=== PATIENT | female | born 1955 | race Caucasian/White ===

== ENCOUNTER 2017-03-06 14:35 | Emergency (ER) | payer MEDICAID ==
--- NOTE | 2017-03-06 15:01 | ED Physician Documentation ---
History of Present Illness - Stated complaint Stated Complaint: DIZZY, SOA, NUMBNESS IN EXTREMITIES - Chief complaint Chief Complaint: Resp - History obtained from History obtained from: Patient - History of Present Illness Timing: Yesterday Pain level max: 2 Pain level now: 2 Improved by: nothing Worsened by: nothing - Additonal information Additional information: Patient is a 62-year-old female who presents to the emergency department complaining of tingling in the bilateral hands and feet since yesterday. States also had some back pain at one point, this is now better. Also had left shoulder pain at one point, this is not resolved. States that occasionally her tongue hurts and it is worse when she sticks her tongue out. She also complains of feeling short of breath with walking for the past 24 hours. Review of Systems Ten Systems: 10 systems reviewed and negative Constitutional: denies: Fever, Chills Ears: denies: Ear pain Nose: denies: Rhinorrhea / runny nose, Congestion Throat: denies: Sore throat Cardiac: denies: Chest pain / pressure, Palpitations Respiratory: reports: Dyspnea (with walking) GI: denies: Abdominal Pain, Nausea, Vomiting, Diarrhea Skin: denies: Rash Musculoskeletal: denies: Neck pain Neurologic: reports: Generalized weakness. 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 - Present Medications Home Medications: Ambulatory Orders Medication Instructions Recorded Confirmed Clonazepam 0.5 mg PO DAILY 03/06/17 03/06/17 - Allergies Allergies/Adverse Reactions: Allergies Allergy/AdvReac Type Severity Reaction Status Date / Time No Known Drug Allergies Allergy Verified 03/06/17 14:42 - Social History Does the pt smoke?: No Smoking Status: Never smoker Does the pt drink ETOH?: No Does the pt have substance abuse?: No - Immunizations Immunizations are current?: No PD ED PE NORMAL - Vitals Vital signs reviewed: Yes - General General: Alert and oriented X 3, No acute distress, Well developed/nourished - HEENT HEENT: PERRL, Moist mucous membranes, Pharynx benign - Neck Neck: Supple, no meningeal sign, No JVD, No bruit - Cardiac Cardiac: RRR, Strong equal pulses - Respiratory Respiratory: No respiratory distress, Clear bilaterally - Abdomen Abdomen: Soft, Non tender, Non distended - Back Back: No spinal TTP - Derm Derm: Warm and dry, No rash - Extremities Extremities: No edema, No calf tenderness / cord - Neuro Neuro: Alert and oriented X 3, heating and cooling technician 2-12 intact, No motor deficit, No sensory deficit, Normal speech - Psych Psych: Normal mood, Normal affect Results - Vitals Vitals: Vital Signs - 24 hr 03/06/17 14:38 Temperature 37 C Heart Rate 64 Respiratory 18 Rate Blood Pressure 133/75 H O2 Saturation 99 Oxygen O2 Source Room air - EKG (time done) 1446 Rate: Rate (enter#) (60) Rhythm: NSR [place]: Normal Intervals: Normal CT QRS: Normal Ischemia: Normal ST segments Computer interpretation: Agree with computer - Labs Labs: Laboratory Tests 03/06/17 03/06/17 03/06/17 15:06 15:06 15:06 WBC 7.5 RBC 4.85 Hgb 14.3 Hct 42.2 MCV 87.1 MCH 29.6 MCHC 34.0 RDW 13.8 Plt Count 241 MPV 8.5 Neut # 4.6 Lymph # 2.0 Gilmer # 0.6 Eos # 0.2 Baso # 0.1 Absolute Nucleated RBC 0.00 Nucleated RBCs 0.0 D-Dimer < 200.0 L Sodium 140 Potassium 3.9 Chloride 105 Carbon Dioxide 27 Anion Gap 8.0 BUN 14 Creatinine 0.7 Estimated GFR (MDRD) 85 L Glucose 87 Calcium 9.1 Total Bilirubin 0.5 AST 23 ALT 17 Alkaline Phosphatase 89 Troponin I Total Protein 6.9 Albumin 4.3 Globulin 2.6 Albumin/Globulin Ratio 1.7 Lipase 42 03/06/17 15:06 WBC RBC Hgb Hct MCV MCH MCHC RDW Plt Count MPV Neut # Lymph # Gilmer # Eos # Baso # Absolute Nucleated RBC Nucleated RBCs D-Dimer Sodium Potassium Chloride Carbon Dioxide Anion Gap BUN Creatinine Estimated GFR (MDRD) Glucose Calcium Total Bilirubin AST ALT Alkaline Phosphatase Troponin I < 0.04 Total Protein Albumin Globulin Albumin/Globulin Ratio Lipase - Rads (name of study) cxr Radiology: Prelim report reviewed, EMP read contemporaneously, See rad report ( no acute disease) PD MEDICAL DECISION MAKING - ED course Complexity details: reviewed results, re-evaluated patient, considered differential (No ST elevation ID, no aortic dissection, no PE, no tension pneumothorax, no aortic aneurysm), d/w patient ED course: Patient is a 62-year-old female who presents to the emergency department with paresthesias, intermittent back pain, intermittent chest pain. No acute findings on laboratory testing, EKG, chest x-ray. No evidence of PE. Possible anxiety related? No evidence of aortic dissection.We will continue supportive care and have her follow-up with her doctor for further evaluation and care. Patient counseled regarding signs and symptoms for which I believe and urgent re -evaluation would be necessary. Patient with good understanding of and agreement to plan and is comfortable going home at this time This document was made in part using voice recognition software. While efforts are made to proofread this document, sound alike and grammatical errors may occur. Departure - Departure Disposition: 01 Home, Self Care Clinical Impression: Paresthesia Dyspnea Qualifiers: Dyspnea type: dyspnea on exertion Qualified Code(s): R06.09 - Other forms of dyspnea Condition: Good Instructions: ED Dyspnea Shortness of Breath, ED Paraesthesias Follow-Up: your,doctor in 1 week [Other] Comments: Your tests are normal today. Return if you worsen. NIHSS - Time Time: 15:00 - Level of Consciousness Level of consciousness: (0) Alert, Keenly responsive LOC Questions: (0) Answers both Q's correct LOC Commands: (0) Performs both correctly - Gaze Best Gaze: (0) Normal - Visual Visual: (0) No loss - Facial Palsy Facial Palsy: (0) Normal, symmetrical movement - Motor Arms (both separate) Motor Arm (right): (0) No drift Motor Arm (left): (0) No drift - Motor Legs (both separate) Motor Leg (right): (0) No drift Motor Leg (left): (0) No drift - Limb Ataxia Limb Ataxia: (0) Absent - Sensory Sensory: (0) Normal - Best Language Best Language: (0) No aphasia - Dysarthria Dysarthria: (0) Normal - Extinction and Inattention (formally neg Extinction and inattention: (0) No abnormality - Total Score/Results Total Score/Result: 0
[2017-03-06 15:17] LABS: BASOPHILS # (AUTO) 0.1 10^3/uL (0.0-0.1); EOSINOPHILS # (AUTO) 0.2 10^3/uL (0.0-0.7); EOSINOPHILS % (AUTO) 2.5 %; HCT - HEMATOCRIT 42.2 % (37.0-47.0); HGB - HEMOGLOBIN 14.3 g/dL (12.0-16.0); LYMPHOCYTES % (AUTO) 26.5 %; MEAN CORPUSCULAR HEMOGLOBIN 29.6 pg (27.0-31.0); MEAN CORPUSCULAR VOLUME 87.1 fL (81.0-99.0); MEAN PLATELET VOLUME 8.5 fL (7.9-10.8); MONOCYTES # (AUTO) 0.6 10^3/uL (0.0-1.0); MONOCYTES % (AUTO) 8.4 %; NEUTROPHILS # (AUTO) 4.6 10^3/uL (1.5-6.6); NEUTROPHILS % (AUTO) 61.6 %; RED BLOOD COUNT 4.85 10^6/uL (4.20-5.40); RED CELL DISTRIBUTION WIDTH 13.8 % (12.0-15.0); UNCORRECTED WHITE BLOOD COUNT 7.5 x10^3/uL; WHITE BLOOD COUNT 7.5 x10^3/uL (4.8-10.8)
[2017-03-06 15:26] LABS: ALBUMIN/GLOBULIN RATIO 1.7 (1.0-2.2); BILIRUBIN,TOTAL 0.5 mg/dL (0.2-1.0); CALCIUM 9.1 mg/dL (8.5-10.3); CREATININE 0.7 mg/dL (0.4-1.0); POTASSIUM 3.9 mmol/L (3.5-5.0); TOTAL PROTEIN 6.9 g/dL (6.7-8.2)
--- NOTE | 2017-03-06 15:38 | XRAY Preliminary Report ---
Exam: XR Chest 1 View IMPRESSION: Normal single view chest. [facility] SITE ID: [id number]
--- NOTE | 2017-03-06 15:40 | XRAY Report ---
EXAM: CHEST RADIOGRAPHY EXAM DATE: 03/06/2017 03:22 PM. CLINICAL HISTORY: Dyspnea, chest pain. COMPARISON: None. TECHNIQUE: 1 view. FINDINGS: Lungs/Pleura: No focal opacities evident. No pleural effusion. No pneumothorax. Mediastinum: Within exam limitations, cardiomediastinal contour is normal. Other: None. IMPRESSION: Normal single view chest. [facility] Referring Provider Line: [phone] SITE ID: [id number]
[2017-03-06 18:34] VITALS: BP 111/66
== END 2017-03-06 17:15 | disposition home or self-care (01) ==
LOC: ED 14:35
DX: R20.2 Paresthesia of skin (principal); R06.09 Other forms of dyspnea; M54.9 Dorsalgia, unspecified; R07.9 Chest pain, unspecified; M25.512 Pain in left shoulder
CPT/HCPCS: 36415; 71010; 80053; 83690; 84484; 85025; 85379; 93005; 93010; 99284

== ENCOUNTER 2019-02-09 08:11 | Outpatient (CLI) | payer MEDICAID ==
[2019-02-09 10:22] LABS: BASOPHILS # (AUTO) 0.1 10^3/uL (0.0-0.1); BASOPHILS % (AUTO) 0.7 %; EOSINOPHILS # (AUTO) 0.1 10^3/uL (0.0-0.7); EOSINOPHILS % (AUTO) 1.6 %; HGB - HEMOGLOBIN 15.2 g/dL (12.0-16.0); LYMPHOCYTES # (AUTO) 1.3 10^3/uL (1.5-3.5); LYMPHOCYTES % (AUTO) 14.2 %; MEAN CORPUSCULAR HEMOGLOBIN 28.6 pg (27.0-31.0); MEAN CORPUSCULAR HGB CONC 32.2 g/dL (32.0-36.0); MEAN CORPUSCULAR VOLUME 88.8 fL (81.0-99.0); MEAN PLATELET VOLUME 8.8 fL (7.9-10.8); MONOCYTES # (AUTO) 0.6 10^3/uL (0.0-1.0); MONOCYTES % (AUTO) 6.3 %; NEUTROPHILS # (AUTO) 7.2 10^3/uL (1.5-6.6); NEUTROPHILS % (AUTO) 77.2 %; PLT - PLATELET COUNT 227 10^3/uL (130-450); WHITE BLOOD COUNT 9.3 x10^3/uL (4.8-10.8)
[2019-02-09 10:40] LABS: ALBUMIN 4.3 g/dL (3.2-5.5); ALBUMIN/GLOBULIN RATIO 1.7 (1.0-2.2); ALKALINE PHOSPHATASE 85 IU/L (42-121); ALT ALANINE AMINOTRANSFERASE 25 IU/L (10-60); AST ASPARTATE AMINOTRANSFERASE 30 IU/L (10-42); BILIRUBIN,TOTAL 0.7 mg/dL (0.2-1.0); BUN - BLOOD UREA NITROGEN 15 mg/dL (6-20); CALCIUM 9.2 mg/dL (8.5-10.3); CARBON DIOXIDE - CO2 26 mmol/L (21-32); CHLORIDE 104 mmol/L (101-111); CHOL/HDL RATIO 4.3 (<4.4); CHOLESTEROL 260 mg/dL; CREATININE 0.8 mg/dL (0.4-1.0); GFR - MDRD 73 (>89); GLUCOSE 114 mg/dL (70-100); HDL CHOLESTEROL 60 mg/dL; LDL CHOLESTEROL,CALCULATED 158 mg/dL; LDL/HDL RATIO 2.6 (<4.4); SODIUM 139 mmol/L (135-145); TOTAL PROTEIN 6.9 g/dL (6.7-8.2); VLDL CHOLESTEROL 42 mg/dL
== END 2019-02-09 08:12 | disposition home or self-care (01) ==
LOC: LAB.F 08:11
PROVIDERS: ATTEND Nurse Practitioner
DX: Z00.00 Encounter for general adult medical examination without abnormal findings (principal)
CPT/HCPCS: 36415; 80053; 80061; 83721; 84443; 85025

== ENCOUNTER 2019-05-13 12:53 | Emergency (ER) | payer MEDICAID ==
[2019-05-13 13:00] VITALS: BP 145/91
--- NOTE | 2019-05-13 13:13 | ED Physician Documentation ---
History of Present Illness - Stated complaint Stated Complaint: ANXIETY - Chief complaint Chief Complaint: Cardiac - History obtained from History obtained from: Patient - History of Present Illness Timing: Chronic Pain level max: 0 Pain level now: 0 - Additonal information Additional information: 64-year-old female with a long history of anxiety presents to the emergency department out of her clonazepam for the last several days. States attempted to get in with her PCP but no appointment is available until 05/17/2019. She is not suicidal or homicidal. She is anxious about taking her son to [facility] tomorrow. Nothing makes it better or worse. 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 - Present Medications Home Medications: Ambulatory Orders Medication Instructions Recorded Confirmed clonazePAM [Clonazepam] 0.5 mg PO DAILY 03/06/17 03/06/17 clonazePAM [KlonoPIN] 0.5 mg PO DAILY PRN #7 tablet 05/13/19 - Allergies Allergies/Adverse Reactions: Allergies Allergy/AdvReac Type Severity Reaction Status Date / Time No Known Drug Allergies Allergy Verified 03/06/17 14:42 - Social History Does the pt smoke?: No Smoking Status: Never smoker Does the pt drink ETOH?: No Does the pt have substance abuse?: No - Immunizations Immunizations are current?: No PD ED PE NORMAL - Vitals Vital signs reviewed: Yes - General General: Alert and oriented X 3, No acute distress, Well developed/nourished - HEENT HEENT: Moist mucous membranes - Neck Neck: Supple, no meningeal sign - Cardiac Cardiac: RRR, Strong equal pulses - Respiratory Respiratory: No respiratory distress, Clear bilaterally - Abdomen Abdomen: Soft, Non tender, Non distended - Derm Derm: Warm and dry, No rash - Extremities Extremities: No edema, No calf tenderness / cord - Neuro Neuro: Alert and oriented X 3, score caller 2-12 intact, No motor deficit, No sensory deficit, Normal speech - Psych Psych: Normal mood, Normal affect Results - Vitals Vitals: Vital Signs - 24 hr 05/13/19 12:56 Temperature 36.7 C Heart Rate 70 Respiratory 18 Rate Blood Pressure 145/91 H O2 Saturation 98 Oxygen O2 Source Room air PD MEDICAL DECISION MAKING - ED course Complexity details: considered differential, d/w patient ED course: patient with increasing anxiety. We will refill her clonazepam for her. She has an appointment with her doctor in approximately 4 days. She is not suicidal or homicidal. Patient counseled regarding signs and symptoms for which I believe and urgent re-evaluation would be necessary. Patient with good understanding of and agreement to plan and is comfortable going home at this time This document was made in part using voice recognition software. While efforts are made to proofread this document, sound alike and grammatical errors may occur. Departure - Departure Disposition: 01 Home, Self Care Clinical Impression: Anxiety Condition: Good Instructions: ED Panic Attack Follow-Up: your,doctor as scheduled [Other] Prescriptions: clonazePAM [KlonoPIN] 0.5 mg PO DAILY PRN #7 tablet PRN Reason: Anxiety Comments: Use the medications as prescribed. Return if you worsen. Follow-up with your doctor for further care. Do not drive or operate heavy machinery while taking this medication.
== END 2019-05-13 13:20 | disposition home or self-care (01) ==
LOC: ED 12:53
DX: F41.9 Anxiety disorder, unspecified (principal)
CPT/HCPCS: 99283; 99284

== ENCOUNTER 2020-06-26 14:47 | Outpatient (CLI) | payer MEDICAID | END 2020-06-26 14:48 | disposition home or self-care (01) | LOC: COV 14:47 | PROVIDERS: ATTEND Family Medicine | DX: R50.9 Fever, unspecified (principal); R05 Cough; M79.10 Myalgia, unspecified site; R53.83 Other fatigue; R09.81 Nasal congestion; R11.2 Nausea with vomiting, unspecified; Z20.828 Contact with and (suspected) exposure to other viral communicable diseases ==

== ENCOUNTER 2020-11-15 11:59 | Emergency (ER) | payer MEDICAID ==
[2020-11-15 12:31] VITALS: BP 132/71
[2020-11-15 12:32] LABS: BASOPHILS # (AUTO) 0.1 10^3/uL (0.0-0.1); BASOPHILS % (AUTO) 0.9 %; EOSINOPHILS # (AUTO) 0.3 10^3/uL (0.0-0.7); EOSINOPHILS % (AUTO) 3.3 %; HGB - HEMOGLOBIN 15.3 g/dL (12.0-16.0); LYMPHOCYTES # (AUTO) 1.8 10^3/uL (1.5-3.5); LYMPHOCYTES % (AUTO) 19.8 %; MEAN CORPUSCULAR HEMOGLOBIN 29.4 pg (27.0-31.0); MEAN CORPUSCULAR HGB CONC 32.6 g/dL (32.0-36.0); MEAN CORPUSCULAR VOLUME 90.2 fL (81.0-99.0); MEAN PLATELET VOLUME 9.6 fL (7.9-10.8); MONOCYTES # (AUTO) 0.7 10^3/uL (0.0-1.0); MONOCYTES % (AUTO) 8.2 %; NEUTROPHILS # (AUTO) 5.9 10^3/uL (1.5-6.6); NEUTROPHILS % (AUTO) 67.2 %; PLT - PLATELET COUNT 263 10^3/uL (130-450); RED CELL DISTRIBUTION WIDTH 13.9 % (12.0-15.0); WHITE BLOOD COUNT 8.8 x10^3/uL (4.8-10.8)
--- NOTE | 2020-11-15 12:33 | ED Physician Documentation ---
History of Present Illness - Stated complaint Stated Complaint: SOA,CHEST PRESSURE,CONFUSION - Chief complaint Chief Complaint: Cardiac - History obtained from History obtained from: Patient - Additonal information Additional information: 65-year-old female presents to the emergency department for evaluation of chest pressure dizziness and what she reports as confusion. She states that last night she was trying to bake an egg dish and felt overwhelmed with the recipe though she had done it many times before. She ended up in tears and called her mom. She states that if she is going to bed last night she had a constant pressure in her chest. It woke her up number of times throughout the night and the chest pressure is constant this morning. She feels like she cannot fully catch her air. She does report to me that she has not taken her clonazepam for about 5 days. Her primary care provider and her are attempting to wean off the clonazepam which she has been on for many years. Due to prescription error the newest dose was not able to be filled at the pharmacy and her primary provider is correcting this. Patient reports a lot of anxiety regarding the incarceration of her son who was shot about 9 months ago by [employer]. This causes her a lot of worry as she feels from him. She denies any history of hypertension or diabetes. No previous coronary artery disease. She is a daily smoker. She has no recent travel or unilateral leg swelling. No abdominal pain nausea vomiting diaphoresis. Patient reports that she feels confused however she is quite alert, oriented x4 able to answer all questions fully, and also has remote and long-term history intact. Review of Systems Constitutional: reports: Reviewed and negative Eyes: reports: Reviewed and negative Ears: reports: Reviewed and negative Nose: reports: Reviewed and negative Throat: reports: Reviewed and negative Cardiac: reports: Chest pain / pressure. denies: Palpitations, Pedal edema, Calf pain Respiratory: reports: Dyspnea. denies: Cough, Hemoptysis, Wheezing GI: denies: Abdominal Pain, Nausea, Vomiting, Constipation, Diarrhea : denies: Dysuria, Frequency, Hesitancy Skin: denies: Rash, Lesions, Abrasion (s) Musculoskeletal: denies: Neck pain, Back pain, Extremity pain, Joint pain Neurologic: denies: Generalized weakness, Focal weakness, Numbness, Difficulty speaking, Near syncope, Syncope, Seizure, Confused, Altered mental status, Headache, LOC Psychiatric: reports: Depressed, Anxiety Endocrine: reports: Reviewed and negative PD PAST MEDICAL HISTORY - Past Medical History Past Medical History: No Psych: Anxiety - Past Surgical History 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 - Allergies Allergies/Adverse Reactions: Allergies Allergy/AdvReac Type Severity Reaction Status Date / Time No Known Drug Allergies Allergy Verified 11/15/20 12:04 - Social History Does the pt smoke?: Yes Smoking Status: Current every day smoker Does the pt drink ETOH?: No Does the pt have substance abuse?: No - Immunizations Immunizations are current?: Yes - POLST Patient has POLST: No PD ED PE EXPANDED - General General: Alert, No acute distress, Well developed/nourished - HEENT HEENT: Atraumatic, PERRL, EOMI, Pharynx normal - Eyes Eyes: Visual acuity - see nn, PERRL - Neck Neck: Supple w/out meningeal sx, No tenderness. No: Adenopathy - Cardiac Cardiac: Regular Rate, Regular Rhythm, Radial strong equal, Cap refill < 2 sec. No: Murmur Present - Respiratory Respiratory: Clear to ausultation nieves. No: Distress, Labored - Abdomen Abdomen: Normal Bowel sounds. No: Tender to palpation - Derm Derm: Normal color. No: Rash - Extremities Extremities: Normal. No: Deformity, Tenderness, Pedal edema bilateral, Right calf TTP/cord, Left calf TTP/cord - Neuro Neuro: Alert and Oriented X 3, CNII-XII intact, Nystagmus, Cerebellar nl, Normal gait, Normal finger nose, Normal speech, Other (No tremor on exam.) - GCS Eye Opening: Spontaneous Motor: Obeys Commands Verbal: Oriented Total: 15 Results - Vitals Vitals: Vital Signs - 24 hr 11/15/20 11/15/20 12:06 12:30 Temperature 36.8 C Heart Rate 74 74 Respiratory 18 18 Rate Blood Pressure 146/79 H 132/71 H O2 Saturation 98 96 Oxygen O2 Source Room air - Labs Labs: Laboratory Tests 11/15/20 11/15/20 11/15/20 12:25 12:25 12:25 WBC 8.8 RBC 5.20 Hgb 15.3 Hct 46.9 MCV 90.2 MCH 29.4 MCHC 32.6 RDW 13.9 Plt Count 263 MPV 9.6 Neut # (Auto) 5.9 Lymph # (Auto) 1.8 Winston # (Auto) 0.7 Eos # (Auto) 0.3 Baso # (Auto) 0.1 Absolute Nucleated RBC 0.00 Nucleated RBC % 0.0 D-Dimer Sodium 140 Potassium 4.0 Chloride 104 Carbon Dioxide 25 Anion Gap 11.0 BUN 21 H Creatinine 0.8 Estimated GFR (MDRD) 72 L Glucose 113 H Calcium 9.3 Total Bilirubin 0.5 AST 22 ALT 19 Alkaline Phosphatase 95 Troponin I High Sens 2.7 Total Protein 7.1 Albumin 4.3 Globulin 2.8 Albumin/Globulin Ratio 1.5 Lipase 57 H 11/15/20 12:29 WBC RBC Hgb Hct MCV MCH MCHC RDW Plt Count MPV Neut # (Auto) Lymph # (Auto) Winston # (Auto) Eos # (Auto) Baso # (Auto) Absolute Nucleated RBC Nucleated RBC % D-Dimer < 200.0 L Sodium Potassium Chloride Carbon Dioxide Anion Gap BUN Creatinine Estimated GFR (MDRD) Glucose Calcium Total Bilirubin AST ALT Alkaline Phosphatase Troponin I High Sens Total Protein Albumin Globulin Albumin/Globulin Ratio Lipase PD MEDICAL DECISION MAKING - ED course Complexity details: reviewed results, considered differential ED course: 65-year-old female presents the emergency department for evaluation of chest pressure, anxiety and reported confusion. This is in the setting of recently being absent lorazepam for 5 days. She reports to me that her primary care provider is writing for a new prescription. Her EKG is nonischemic. High- sensitivity troponin is negative. D-dimer is negative and her Wells criteria is otherwise low for PE. Chest x-ray showed no acute focal abnormality. During the time patient was here in the emergency department we discussed that some of her symptoms may be related to absence of benzodiazepine. While we were pursuing the work-up of her chest pain and pressure patient eloped from the emergency department without discussion with the RN or provider and left through the ambulance bay doors. I fully reviewed her labs and found no significant or concerning abnormalities. She had stated to the patient in the room with her that "I just cannot take this anymore" before leaving Impression: Chest pressure history of benzodiazepine use Departure - Departure Disposition: ED Elope Clinical Impression: Pressure in chest, Benzodiazepine dependence, Anxiety
[2020-11-15 12:44] LABS: ALBUMIN 4.3 g/dL (3.2-5.5); ALBUMIN/GLOBULIN RATIO 1.5 (1.0-2.2); BILIRUBIN,TOTAL 0.5 mg/dL (0.2-1.0); CALCIUM 9.3 mg/dL (8.5-10.3); CREATININE 0.8 mg/dL (0.4-1.0); TOTAL PROTEIN 7.1 g/dL (6.7-8.2)
--- NOTE | 2020-11-15 12:47 | XRAY Report ---
PROCEDURE: Chest 1 View X-Ray INDICATIONS: Chest Pain TECHNIQUE: One view of the chest was acquired. COMPARISON: Single view chest 03/06/2017 FINDINGS: Surgical changes and devices: None. Lungs and pleura: No pleural effusions or pneumothorax. Lungs are clear. Mediastinum: Mediastinal contours appear normal. Heart size is normal. Bones and chest wall: No suspicious bony lesions. Overlying soft tissues appear unremarkable. IMPRESSION: Normal for age, source of current symptoms is not seen. Reviewed by: Nikolai Woodard MD on 11/15/2020 12:45 PM PST Approved by: Nikolai Woodard MD on 11/15/2020 12:45 PM PST Station ID: [id number]
== END 2020-11-15 13:05 | disposition left against medical advice (07) ==
LOC: ED 11:59
DX: R07.89 Other chest pain (principal); F13.20 Sedative, hypnotic or anxiolytic dependence, uncomplicated; F17.200 Nicotine dependence, unspecified, uncomplicated; F41.9 Anxiety disorder, unspecified
CPT/HCPCS: 36415; 80053; 83690; 84443; 84484; 85025; 85379; 93005; 99284

== ENCOUNTER 2022-08-30 14:08 | Outpatient (CLI) | payer MEDICARE, MEDICAID ==
--- NOTE | 2022-08-30 15:03 | XRAY Report ---
PROCEDURE: Lumbar Spine 2 View INDICATIONS: LUMBAR RADICULOPATHY TECHNIQUE: 2 views of the lumbar spine were acquired. COMPARISON: Thoracic spine x-ray 08/30/2022 FINDINGS: Bones: 5 [id number] vertebrae are present. There is normal bony alignment. No vertebral body compression fractures. No suspicious bony lesions. Mild to moderate disc and foraminal narrowing is present most notable at L4-5 and L5-S1. Soft tissues: Overlying bowel gas pattern is normal. No suspicious soft tissue calcifications. IMPRESSION: Degenerative changes including foraminal narrowing most notable at L4-5 and L5-S1. Reviewed by: Hannah Mcdonnell MD on 08/30/2022 3:02 PM PDT Approved by: Hannah Mcdonnell MD on 08/30/2022 3:02 PM PDT Station ID: [id number]
--- NOTE | 2022-08-30 15:03 | XRAY Report ---
PROCEDURE: Knee 3 View BILAT INDICATIONS: PAIN OF BILATERAL KNEE JOINTS TECHNIQUE: 3 views of the right and left knee(s) were acquired. COMPARISON: None. FINDINGS: Right: No fractures or dislocations. No suspicious bony lesions. Mild tricompartmental knee joint d egeneration. Small joint effusion. No suspicious soft tissue calcifications. Left: No fractures or dislocations. No suspicious bony lesions. Mild tricompartmental knee joint de generation. Small joint effusion. No suspicious soft tissue calcifications. IMPRESSION: 1. Mild osteoarthritis bilaterally. 2. Small knee joint effusions bilaterally. Reviewed by: Na Ayala MD on 08/30/2022 3:02 PM PDT Approved by: Na Ayala MD on 08/30/2022 3:02 PM PDT Station ID: [id number]
--- NOTE | 2022-08-30 15:04 | XRAY Report ---
PROCEDURE: Hips 2V BILAT INDICATIONS: PAIN IN RIGHT AND LEFT HIP TECHNIQUE: 2 views of the hip were acquired. COMPARISON: None FINDINGS: Bones: Normal mineralization. No fractures. There is mild sclerosis and slight subcortical cystic manuel nges at the pubic symphysis in the right pubic bone. There are prominent superior acetabular spurs, r ight greater than left resulting in borderline increased acetabular over coverage. Femoral heads main tain normal shapes. Minimally decreased right femoral acetabular joint space. Sacroiliac joints demon strate normal spacing. Mild subcortical sclerosis along the left SI joint.. The visualized pelvic ri ng appears intact. Soft tissues: No suspicious soft tissue calcifications or masses. IMPRESSION: 1. Prominent superior acetabular spurring extending laterally may predispose to femoral acetabular im pingement, pincer type. 2. Mild degenerative sclerosis at the right aspect of the pubic symphysis and left aspect of the left SI joint. Reviewed by: Patricia Chapman MD on 08/30/2022 3:03 PM PDT Approved by: Patricia Chapman MD on 08/30/2022 3:03 PM PDT Station ID: [id number]
--- NOTE | 2022-08-30 15:05 | XRAY Report ---
PROCEDURE: Thoracic Spine 2 View INDICATIONS: LUMBAR RADICULOPATHY TECHNIQUE: 2 views of the thoracic spine were acquired. COMPARISON: X-ray lumbar spine 08/30/2022. FINDINGS: Bones: No fractures or dislocations. No suspicious bony lesions. 12 pairs of ribs are noted, and a ppear intact where visualized. Multilevel mild disc space narrowing. Soft tissues: No paravertebral stripe thickening. IMPRESSION: Multilevel mild disc space narrowing. Reviewed by: Hannah Mcdonnell MD on 08/30/2022 3:03 PM PDT Approved by: Hannah Mcdonnell MD on 08/30/2022 3:03 PM PDT Station ID: [id number]
== END 2022-08-30 14:09 | disposition home or self-care (01) ==
LOC: DI.S 14:08
PROVIDERS: ATTEND Nurse Practitioner Family
DX: M17.0 Bilateral primary osteoarthritis of knee (principal); M25.461 Effusion, right knee; M25.462 Effusion, left knee; M47.816 Spondylosis without myelopathy or radiculopathy, lumbar region; M47.817 Spondylosis without myelopathy or radiculopathy, lumbosacral region; M76.892 Other specified enthesopathies of left lower limb, excluding foot; M76.891 Other specified enthesopathies of right lower limb, excluding foot; M47.898 Other spondylosis, sacral and sacrococcygeal region; M47.814 Spondylosis without myelopathy or radiculopathy, thoracic region

== ENCOUNTER 2022-10-02 12:34 | Outpatient (CLI) | payer MEDICARE, MEDICAID ==
--- NOTE | 2022-10-02 15:25 | CT Report ---
PROCEDURE: PELVIS WO INDICATIONS: BILATERAL HIP PAIN TECHNIQUE: Noncontrast 3 mm axial sections acquired through the bony pelvis, with coronal and sagittal reformatt ing. For radiation dose reduction, the following was used: automated exposure control, adjustment of mA and/or kV according to patient size. COMPARISON: Plain films of 08/30/2022. FINDINGS: Image quality: Excellent. Bones: Imaging findings shows moderate osteoarthritic type degenerative change involving the right h ip and fwkc-[id number]-[id number] osteoarthritic type degenerative change involving the left hip. I see no evid ence for acute fracture or dislocation. No bony lytic or sclerotic lesions are seen. Incidentally noted is partial sacralization of L5 on the right Soft tissues: There is colonic diverticulosis without evidence for diverticulitis. Otherwise visuali zed pelvic organs appear within normal limits. There is some mild atherosclerotic calcifications pres ent. IMPRESSION: 1. Moderate osteoarthritic type degenerative change right hip. 2. Ffip-py-andocwkv osteoarthritic type degenerative change left hip. 3. Colonic diverticulosis. 4. Mild atherosclerotic vascular calcifications. 5. Partial sacralization of L5 on the right. Reviewed by: Miguel Daniels MD on 10/02/2022 3:23 PM PST Approved by: Miguel Daniels MD on 10/02/2022 3:23 PM PST Station ID: [id number]
== END 2022-10-02 12:35 | disposition home or self-care (01) ==
LOC: DI 12:34
PROVIDERS: ATTEND Nurse Practitioner Family
DX: M16.0 Bilateral primary osteoarthritis of hip (principal); K57.30 Diverticulosis of large intestine without perforation or abscess without bleeding; Q76.49 Other congenital malformations of spine, not associated with scoliosis; I70.90 Unspecified atherosclerosis

== ENCOUNTER 2022-10-18 10:58 | Outpatient (CLI) | payer MEDICARE, MEDICAID ==
--- NOTE | 2022-10-18 11:30 | CT Report ---
PROCEDURE: LUMBAR SPINE WO INDICATIONS: LUMBAR RADICULOPATHY TECHNIQUE: Noncontrast 3 mm thick sections acquired from the T12 level to the sacrum. Sagittal and coronal refo rmats were constructed. For radiation dose reduction, the following was used: automated exposure co ntrol, adjustment of mA and/or kV according to patient size. COMPARISON: None. FINDINGS: Image quality: Excellent Bones: Vertebral body heights are well-maintained. Minimal osteophytes and facet arthropathy. There i s some disc space height loss in the lower lumbar spine at L4-L5 and L5-S1. No spondylolisthesis. No acute displaced fracture is identified. Small disc bulge is seen at L2-L3. This probably results in mild central narrowing. SPECT is mild to moderate bilateral neural foraminal narrowing. A moderate disc bulge is seen at L3-L4, with some rim calcifications. This probably results in modera te central narrowing and bilateral neural foraminal narrowing. Small disc bulges seen at L4-L5, with moderate bilateral neural foraminal narrowing. No high-grade st enosis is seen at the other levels. 5 lumbar type vertebral bodies are present. There is pseudoarthrosis of some osteophytes at the right L5-S1 Soft tissues: Suspected large duodenal diverticulum. There is an indeterminate right adrenal measuring 9 mm, probably an adenoma, but would require CT adr enal protocol or MR adrenal protocol to definitively characterize. No abdominal aortic aneurysm. Some vascular calcifications are present. Colonic diverticula. Impression: Mild to moderate lumbar spondylosis, as detailed above. These findings would be better evaluated on M RI if possible. Other incidental findings described above. Reviewed by: Bernardino Canchola MD on 10/18/2022 10:29 AM [facility] Approved by: Bernardino Canchola MD on 10/18/2022 10:29 AM [facility] Station ID: [id number]
== END 2022-10-18 10:59 | disposition home or self-care (01) ==
LOC: DI 10:58
PROVIDERS: ATTEND Nurse Practitioner Family
DX: M47.26 Other spondylosis with radiculopathy, lumbar region (principal); M51.16 Intervertebral disc disorders with radiculopathy, lumbar region

== ENCOUNTER 2023-02-07 07:06 | Outpatient (CLI) | payer MEDICARE ==
--- NOTE | 2023-02-07 08:02 | MRI Report ---
PROCEDURE: LUMBAR SPINE WO INDICATIONS: LUMBAR RADICULOPATHY TECHNIQUE: Noncontrast sagittal T1 spin echo and T2 fast echo, sagittal STIR, axial T1 and T2 fast spin echo thr ough the lumbar spine. In cases with scoliosis, additional coronal T2 fast spin echo may be performe d. COMPARISON: None. FINDINGS: Image quality: Excellent. Alignment and Curvature: There is normal bony alignment. Bone Marrow: Marrow is of normal overall signal. No acute vertebral body compression fractures. Spinal Cord: Conus medullaris terminates at the L1 level. Visualized cord demonstrates normal signa l and size. Paraspinous Soft Tissues: No paravertebral masses. T12-L1: Normal in appearance. L1-L2: Normal in appearance. L2-L3: Normal in appearance. L3-L4: Minimal disc bulge. Mild facet hypertrophy. No canal stenosis or foraminal stenosis. L4-L5: Minimal disc bulge. Prominent facet hypertrophy. Mild canal stenosis. Mild bilateral foramin al stenosis. L5-S1: Mild disc bulge. Facet hypertrophy. Mild canal stenosis. Mild bilateral foraminal stenosis. There is a large right lateral discogenic osteophyte which abuts the right L5 nerve root far laterall y (far beyond the foramen). This is of uncertain clinical significance. Reference image 14 of series 6, angled axial T2 image. IMPRESSION: 1. Lower lumbar facet arthropathy. 2. Mild canal stenosis at L4-L5 and L5-S1. 3. At L5-S1, there is a large right lateral discogenic osteophyte which abuts the right L5 nerve root far laterally. This is of uncertain clinical significance. Question: Does this patient have any righ t L5 radicular symptoms? Reviewed by: Shiv Lopez MD on 02/07/2023 8:00 AM PDT Approved by: Shiv Lopez MD on 02/07/2023 8:00 AM PDT Station ID: [id number]
== END 2023-02-07 07:07 | disposition home or self-care (01) ==
LOC: DI 07:06
PROVIDERS: ATTEND Physician Assistant
DX: M47.26 Other spondylosis with radiculopathy, lumbar region (principal); M48.061 Spinal stenosis, lumbar region without neurogenic claudication; M48.07 Spinal stenosis, lumbosacral region; M25.78 Osteophyte, vertebrae

== ENCOUNTER 2023-07-01 11:41 | Outpatient (CLI) | payer MEDICARE | END 2023-07-01 23:59 | disposition critical access hospital (66) | LOC: EMS 11:41 | DX: R07.89 Other chest pain (principal) | CPT/HCPCS: A0425; A0427 ==

== ENCOUNTER 2023-07-01 12:16 | Emergency (ER) | payer MEDICARE ==
--- NOTE | 2023-07-01 12:43 | ED Physician Documentation ---
PD HPI CHEST PAIN - Stated complaint Stated Complaint: CHEST PX - Chief complaint Chief Complaint: Cardiac - History obtained from History obtained from: Patient, Family - Additional information Additional information: 68-year-old woman with no history of coronary disease but does have risk factors including age and tobacco abuse. At 1050 this morning she was going up and down the stairs repeatedly as she kept forgetting things that she was on the way out of the house and developed left-sided chest pressure radiating into the left arm with numbness in the left fingertips. Nitroglycerin and morphine prior to arrival was unhelpful. She did take aspirin at home prior to arrival. No pedal edema or calf pain. 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 - Allergies Allergies/Adverse Reactions: Allergies Allergy/AdvReac Type Severity Reaction Status Date / Time No Known Drug Allergies Allergy Verified 07/01/23 12:21 - Social History Does the pt smoke?: Yes Smoking Status: Current every day smoker Does the pt drink ETOH?: No Does the pt have substance abuse?: No - Immunizations Immunizations are current?: Yes - POLST Patient has POLST: No PD ED PE NORMAL - Vitals Vital signs reviewed: Yes - General General: Alert and oriented X 3, No acute distress - Neck Neck: Supple, no meningeal sign, No bony TTP - Cardiac Cardiac: RRR, No murmur, Other (Equal radial pulses) - Respiratory Respiratory: No respiratory distress, Clear bilaterally - Abdomen Abdomen: Non tender - Extremities Extremities: No edema, No calf tenderness / cord - Neuro Neuro: Alert and oriented X 3, Normal speech Results - Vitals Vitals: Vital Signs - 24 hr 07/01/23 07/01/23 07/01/23 12:21 12:26 12:56 Temperature 36.8 C 36.8 C Heart Rate 60 60 57 L Respiratory 16 16 16 Rate Blood Pressure 148/78 H 148/78 H 146/64 H O2 Saturation 99 99 97 07/01/23 07/01/23 07/01/23 13:26 13:30 14:00 Temperature 36.5 C Heart Rate 54 L 56 L 50 L Respiratory 16 16 16 Rate Blood Pressure 143/63 H 140/60 H 159/77 H O2 Saturation 100 98 100 07/01/23 07/01/23 07/01/23 14:30 15:37 16:13 Temperature 36.6 C Heart Rate 60 55 L 55 L Respiratory 16 14 16 Rate Blood Pressure 160/70 H 178/84 H O2 Saturation 100 100 99 07/01/23 16:30 Temperature Heart Rate 54 L Respiratory 12 Rate Blood Pressure 163/85 H O2 Saturation 97 Oxygen O2 Source Room air - EKG (time done) 1222 EKG releavant findings:: EKG personally interpreted by author of this note. Relevant findings are: Rate: Rate (enter#) (61) Rhythm: NSR [place]: Normal Intervals: Normal [place] QRS: Normal Ischemia: Non specific changes (Computer calling minimal ST elevation inferiorly, it is well under a millimeter. No reciprocal changes. We will repeat in short order.). No: ST elevation c/w ischemia 1253 EKG releavant findings:: EKG personally interpreted by author of this note. Relevant findings are: Rate: Rate (enter#) (56) Rhythm: NSR [place]: Normal Intervals: Normal [place] QRS: Normal Ischemia: Non specific changes (Computer again calling minimal ST elevation inferiorly, again very small and no change from the first EKG.). No: ST elevation c/w ischemia - Labs Labs: Laboratory Tests 07/01/23 07/01/23 07/01/23 12:38 12:38 14:39 WBC 7.9 RBC 4.92 Hgb 14.2 Hct 43.3 MCV 88.0 MCH 28.9 MCHC 32.8 RDW 13.2 Plt Count 260 MPV 10.1 Neut # (Auto) 5.6 Lymph # (Auto) 1.6 Taliaferro # (Auto) 0.5 Eos # (Auto) 0.1 Baso # (Auto) 0.1 Absolute Nucleated RBC 0.00 Nucleated RBC % 0.0 Sodium 137 Potassium 4.5 Chloride 102 Carbon Dioxide 31 Anion Gap 4.0 L BUN 13 Creatinine 0.8 Estimated GFR (MDRD) 72 L Glucose 278 H Calcium 9.3 Total Bilirubin 0.3 AST 17 ALT 16 Alkaline Phosphatase 114 Troponin I High Sens 14.1 117.1 H* Total Protein 6.0 L Albumin 3.9 Globulin 2.1 Albumin/Globulin Ratio 1.9 Lipase 27 - Rads (name of study) Single view chest x-ray is unremarkable Relevant Findings:: Final report received, EMP independent interpretation of test PD Medical Decision Making - ED course ED course: 68-year-old woman with anginal symptoms and initial EKG and troponin negative, second EKG without interval change, second troponin becoming quite positive consistent with non-STEMI and she has ongoing pain. Ordered heparin bolus and drip, Lipitor, metoprolol, Nitropaste. Patient wanted to go to [facility], but they are full and we are calling around for a bed with cardiology capabilities. The health patrol community service officer initially called [facility], and [facility], all were full. I also know that [facility] is full. [facility] [place]. Excepted to [facility] by Dr. Osborn at 5:02 PM. - Critical Care Time(min): 35 Time Includes: Direct patient care, Review records, Reassess patient, Document care, Coordinate care, Medical consult, Family consult for tx dec Data interpretation: Labs, Pulse ox Procedures excluded from critical care time: EKG Departure - Departure Disposition: 02 Transfer Acute Care Hosp Clinical Impression: Non-STEMI (non-ST elevated myocardial infarction) Condition: Serious Forms: PCP List
[2023-07-01 12:44] LABS: BASOPHILS # (AUTO) 0.1 10^3/uL (0.0-0.1); BASOPHILS % (AUTO) 0.6 %; EOSINOPHILS # (AUTO) 0.1 10^3/uL (0.0-0.7); EOSINOPHILS % (AUTO) 1.5 %; HCT - HEMATOCRIT 43.3 % (37.0-47.0); HGB - HEMOGLOBIN 14.2 g/dL (12.0-16.0); LYMPHOCYTES # (AUTO) 1.6 10^3/uL (1.5-3.5); LYMPHOCYTES % (AUTO) 20.2 %; MEAN CORPUSCULAR HEMOGLOBIN 28.9 pg (27.0-31.0); MEAN CORPUSCULAR HGB CONC 32.8 g/dL (32.0-36.0); MEAN PLATELET VOLUME 10.1 fL (7.9-10.8); MONOCYTES # (AUTO) 0.5 10^3/uL (0.0-1.0); MONOCYTES % (AUTO) 6.2 %; NEUTROPHILS # (AUTO) 5.6 10^3/uL (1.5-6.6); NEUTROPHILS % (AUTO) 70.9 %; PLT - PLATELET COUNT 260 10^3/uL (130-450); RED BLOOD COUNT 4.92 10^6/uL (4.20-5.40); RED CELL DISTRIBUTION WIDTH 13.2 % (12.0-15.0); WHITE BLOOD COUNT 7.9 x10^3/uL (4.8-10.8)
[2023-07-01] MEDS ORDERED: HYDROmorphone 0.5 MG/0.5 ML SYRINGE IVP STA (12:51)
[2023-07-01 13:06] LABS: TROPONIN I HIGH SENSITIVITY 14.1 ng/L (2.3-14.8)
[2023-07-01 13:20] LABS: ALBUMIN 3.9 g/dL (3.2-5.5); ALBUMIN/GLOBULIN RATIO 1.9 (1.0-2.2); BILIRUBIN,TOTAL 0.3 mg/dL (0.2-1.0); CALCIUM 9.3 mg/dL (8.5-10.3); CREATININE 0.8 mg/dL (0.6-1.3); POTASSIUM 4.5 mmol/L (3.5-4.5)
--- NOTE | 2023-07-01 13:22 | XRAY Report ---
PROCEDURE: Chest 1 View X-Ray INDICATIONS: Chest pain TECHNIQUE: One view of the chest was acquired. COMPARISON: None. FINDINGS: Surgical changes and devices: None. Lungs and pleura: No pleural effusions or pneumothorax. Lungs are clear. Mediastinum: Mediastinal contours appear normal. Heart size is normal. Bones and chest wall: No suspicious bony lesions. Overlying soft tissues appear unremarkable. IMPRESSION: No acute cardiopulmonary process. Reviewed by: Mikel Amor on 07/01/2023 1:20 PM PDT Approved by: Mikel Amor on 07/01/2023 1:20 PM PDT Station ID: [id number]
[2023-07-01] MEDS ORDERED: ATORVASTATIN 40 MG TABLET PO STA (15:14)
[2023-07-01] MEDS ORDERED: NITROGLYCERIN 2% PASTE TOP STA (15:14)
[2023-07-01] MEDS ORDERED: HEPARIN 25000UNITS/500ML (D5W) 25,000 UNIT/500 ML BAG IV SCH (16:00)
[2023-07-01] MEDS ORDERED: HYDROmorphone 1 MG/ML CARPUJECT IVP STA ×2 (16:22→18:20)
[2023-07-01] MEDS ORDERED: ACETAMINOPHEN 500 MG TABLET PO PRN (16:54)
[2023-07-01] MEDS ORDERED: ONDANSETRON 4 MG/2 ML VIAL IVP PRN (16:54)
[2023-07-01] MEDS ORDERED: oxyCODONE 5 MG TABLET PO SCH (17:00)
[2023-07-01 18:58] VITALS: BP 131/69; O2SAT 94
[2023-07-01] MEDS ORDERED: ATORVASTATIN 40 MG TABLET PO SCH (21:00)
[2023-07-01] MEDS ORDERED: METOPROLOL TARTRATE 25 MG TABLET PO SCH (21:00)
[2023-07-02] MEDS ORDERED: PANTOPRAZOLE 40 MG TABLET PO SCH (07:00)
[2023-07-02] MEDS ORDERED: ASPIRIN CHEW 81 MG TABLET PO SCH (09:00)
== END 2023-07-01 18:55 | disposition short-term general hospital (02) ==
LOC: EDUNIT# → ED 12:16
DX: I21.4 Non-ST elevation (NSTEMI) myocardial infarction (principal); F17.200 Nicotine dependence, unspecified, uncomplicated
CPT/HCPCS: 36415; 71045; 80053; 83690; 84484; 85025; 93005; 96374; 96375; 96376; 99285; 99291; A9270; J1170

== ENCOUNTER 2023-07-14 11:44 | Outpatient (CLI) | payer MEDICARE ==
[2023-07-14 14:44] LABS: BASOPHILS # (AUTO) 0.1 10^3/uL (0.0-0.1); BASOPHILS % (AUTO) 0.9 %; EOSINOPHILS # (AUTO) 0.2 10^3/uL (0.0-0.7); EOSINOPHILS % (AUTO) 1.4 %; HCT - HEMATOCRIT 47.8 % (37.0-47.0); HGB - HEMOGLOBIN 15.5 g/dL (12.0-16.0); LYMPHOCYTES # (AUTO) 1.4 10^3/uL (1.5-3.5); LYMPHOCYTES % (AUTO) 12.2 %; MEAN CORPUSCULAR HEMOGLOBIN 28.4 pg (27.0-31.0); MEAN CORPUSCULAR HGB CONC 32.4 g/dL (32.0-36.0); MEAN CORPUSCULAR VOLUME 87.5 fL (81.0-99.0); MEAN PLATELET VOLUME 10.6 fL (7.9-10.8); MONOCYTES # (AUTO) 0.8 10^3/uL (0.0-1.0); MONOCYTES % (AUTO) 7.2 %; NEUTROPHILS # (AUTO) 8.9 10^3/uL (1.5-6.6); NEUTROPHILS % (AUTO) 77.9 %; PLT - PLATELET COUNT 312 10^3/uL (130-450); RED BLOOD COUNT 5.46 10^6/uL (4.20-5.40); WHITE BLOOD COUNT 11.4 x10^3/uL (4.8-10.8)
[2023-07-14 15:58] LABS: ALBUMIN 4.4 g/dL (3.2-5.5); ALBUMIN/GLOBULIN RATIO 1.5 (1.0-2.2); ALKALINE PHOSPHATASE 124 IU/L (42-121); ALT ALANINE AMINOTRANSFERASE 21 IU/L (10-60); AST ASPARTATE AMINOTRANSFERASE 19 IU/L (10-42); BILIRUBIN,TOTAL 0.4 mg/dL (0.2-1.0); BUN - BLOOD UREA NITROGEN 13 mg/dL (6-20); CARBON DIOXIDE - CO2 26 mmol/L (21-32); CHLORIDE 102 mmol/L (101-111); CHOL/HDL RATIO 2.4 (<4.4); CHOLESTEROL 118 mg/dL; CREATININE 0.8 mg/dL (0.6-1.3); CRP - C-REACTIVE PROTEIN 2.4 mg/dL (<0.5); GFR - MDRD 72 (>89); GLUCOSE 209 mg/dL (74-104); HDL CHOLESTEROL 49 mg/dL; LDL CHOLESTEROL,CALCULATED 19 mg/dL; LDL/HDL RATIO 0.4 (<4.4); POTASSIUM 4.1 mmol/L (3.5-4.5); SODIUM 137 mmol/L (135-145); TOTAL PROTEIN 7.4 g/dL (6.4-8.9); TRIGLYCERIDES 251 mg/dL (48-352); VLDL CHOLESTEROL 50 mg/dL
[2023-07-14 16:15] LABS: THYROID STIMULATING HORMONE 2.86 uIU/mL (0.34-5.60)
[2023-07-14 21:33] LABS: ESTIMATED AVERAGE GLUCOSE 209 mg/dL (70-100); HEMOGLOBIN A1c% 8.9 % (4.27-6.07)
[2023-07-15 05:12] LABS: HCV AB Non Reactive (Non Reactive)
[2023-07-15 06:10] LABS: THYROID PEROXIDASE (TPO) AB >600 IU/mL (0-34)
[2023-07-15 18:07] LABS: THYROGLOBULIN ANTIBODY <1.0 IU/mL (0.0-0.9)
== END 2023-07-14 11:45 | disposition home or self-care (01) ==
LOC: LAB.S 11:44
PROVIDERS: ATTEND Nurse Practitioner Family
DX: I10 Essential (primary) hypertension (principal); E11.65 Type 2 diabetes mellitus with hyperglycemia; R51.9 Headache, unspecified; Z11.59 Encounter for screening for other viral diseases; Z13.220 Encounter for screening for lipoid disorders; M25.551 Pain in right hip; E04.1 Nontoxic single thyroid nodule
CPT/HCPCS: 36415; 80053; 80061; 83036; 83721; 84439; 84443; 84481; 85025; 85651; 86140; 86376; 86800; 86803

== ENCOUNTER 2023-07-27 10:18 | Outpatient (CLI) | payer MEDICARE ==
--- NOTE | 2023-07-27 17:49 | Ultrasound Report ---
PROCEDURE: Head or Neck Soft Tissue INDICATIONS: THYROID NODULE TECHNIQUE: Real-time scanning was performed of the thyroid gland, with image documentation. COMPARISON: None FINDINGS: Right: Thyroid lobe measures 6.4 x 2.1 x 1.9 cm, and is homogeneous in echotexture. Left: Thyroid lobe measures 5.0 x 1.4 x 1.3 cm, and is homogenous in echotexture. Isthmus: 4 mm thick. Nodule number: One Location: Right superior Size: 1.2 x 1.3 x 1.3 cm. Composition: Solid (2 points). Echogenicity: Hyperechoic (1 point). Shape: wider than tall. Margins: Smooth (0 points). Echogenic foci: None (0 points). Total points: 3 ACR TI-RADS category: Mildly suspicious (3 points). Nodule number: Two Location: Right inferior Size: 2.3 x 2.6 x 2.0 cm. Composition: Mixed cystic and solid (1 point). Echogenicity: Hypoechoic (2 points). Shape: wider than tall. Margins: Smooth (0 points). Echogenic foci: None (0 points). Total points: 3 ACR TI-RADS category: Mildly suspicious (3 points). Nodule number: Three Location: Right isthmus Size: 0.6 x 0.7 x 0.6 cm. Composition: Solid (2 points). Echogenicity: Isoechoic (1 point). Shape: wider than tall. Margins: Smooth (0 points). Echogenic foci: None (0 points). Total points: 3 ACR TI-RADS category: Mildly suspicious (3 points). Nodule number: Four Location: Left superior Size: 1.3 x 1.3 x 0.6 cm. Composition: Solid (2 points). Echogenicity: Isoechoic (1 point). Shape: wider than tall. Margins: Smooth (0 points). Echogenic foci: None (0 points). Total points: 3 ACR TI-RADS category: Mildly suspicious (3 points). Nodule number: Five Location: Left inferior Size: 1.0 x 1.0 x 0.6 cm. Composition: Solid (2 points). Echogenicity: Isoechoic (1 point). Shape: wider than tall. Margins: Smooth (0 points). Echogenic foci: None (0 points). Total points: 3 ACR TI-RADS category: Mildly suspicious (3 points). IMPRESSION: Multiple mildly suspicious thyroid nodules as described above. Recommend fine-needle asp iration of nodule #2. ACR TI-RADS definitions and recommendations: TI-RADS 1 (benign): 0 points. FNA not needed. TI-RADS 2 (not suspicious): 2 points. FNA not needed. TI-RADS 3 (mildly suspicious): 3 points. "FNA if 2.5 cm or larger, follow up if 1.5 cm or larger (at 1, 3, and 5 years). TI-RADS 4 (moderately suspicious): 4-6 points. "FNA if 1.5 cm or larger, follow up if 1 cm or larger (at 1, 2, 3, and 5 years). TI-RADS 5 (highly suspicious): 7 points or more. "FNA if 1 cm or larger, follow up if 0.5 cm or larger (every year for 5 years). Reviewed by: Hector Clarke MD on 07/27/2023 5:48 PM PDT Approved by: Hector Clarke MD on 07/27/2023 5:48 PM PDT Station ID: [id number]
== END 2023-07-27 10:19 | disposition home or self-care (01) ==
LOC: DI 10:18
PROVIDERS: ATTEND Nurse Practitioner Family
DX: E04.2 Nontoxic multinodular goiter (principal)

== ENCOUNTER 2023-12-09 09:49 | Outpatient (CLI) | payer MEDICARE ==
[~2023-12-09 09:49] MED LIST: LIDOCAINE-MPF 1% 5 ML VIAL ONE
[2023-12-09] MEDS: LIDOCAINE-MPF 1% 5 ML VIAL TD ONE (10:55)
--- NOTE | 2023-12-09 11:35 | Ultrasound Report ---
PROCEDURE: FNA Bx w/US Gdn 1st Les INDICATIONS: THYROID NODULE TECHNIQUE: The indications, alternatives, benefits, risks, and complications of the procedure were explained to the patient. Written informed consent was obtained and placed in the chart. The area of interest wa s examined sonographically and a site was chosen for ultrasound guided percutaneous sampling. The sk in was prepared and draped in the usual fashion, and anesthetized with 1% lidocaine infiltrated from the skin down to the lesion. Multiple passes were then performed, with contents emptied [facility] an [facility]. A bandage was applied to the area of access at completion of t he study. COMPARISON: 07/27/2023 FINDINGS: Location(s) of lesion(s) sampled: Right inferior nodule [place]: 25 gauge hypodermic needles. Number of passes: 4 Medications: 1% lidocaine for local anaesthesia. Complications: None. IMPRESSION: Successful ultrasound-guided right inferior fine needle aspiration, with cytology results pending. Reviewed by: Bernardino Canchola MD on 12/09/2023 11:34 AM PST Approved by: Bernardino Canchola MD on 12/09/2023 11:34 AM PST Station ID: [id number]
== END 2023-12-09 09:50 | disposition home or self-care (01) ==
LOC: DI 09:49
PROVIDERS: ATTEND Nurse Practitioner Family
DX: E04.2 Nontoxic multinodular goiter (principal)
CPT/HCPCS: 10005